=== PATIENT | male | born 1985 | race Caucasian/White ===

== ENCOUNTER 2021-06-07 19:57 | Emergency (ER) | payer BC ==
[2021-06-07] MEDS ORDERED: Diphtheria,Pertussis(Acell),Tetanus Vaccine 0.5 ML Syringe IM ONE (20:24)
[2021-06-07] MEDS ORDERED: Take Home: traMADol 50 MG, 4 Tab Pack PO ONE (20:41)
[2021-06-07] MEDS ORDERED: Cephalexin 500 MG Cap PO ONE (20:55)
[2021-06-07] MEDS: traMADol 50 MG Tab PO PRN ×2 (21:00→21:02)
== END 2021-06-07 21:13 | disposition home or self-care (01) ==
LOC: CC.ED 19:57
DX: S61.412A Laceration without foreign body of left hand, initial encounter (principal); S01.112A Laceration without foreign body of left eyelid and periocular area, initial encounter; Z23 Encounter for immunization; W26.8XXA Contact with other sharp object(s), not elsewhere classified, initial encounter
CPT/HCPCS: 12004; 12011; 90471; 90715; 99282-25; A9270-GY